=== PATIENT | male | born 1985 | race Caucasian/White ===

== ENCOUNTER 2018-01-29 23:24 | Emergency (ER) | payer BC ==
[~2018-01-29] VITALS: Ht 172.7 cm; Wt 85.7 kg
[~2018-01-29 23:24] MED LIST: DIPATR PO; HYDACE5 PO; PROM25 PO
== END 2018-01-30 00:10 | disposition home or self-care (01) ==
LOC: ER 23:24
DX: S80.01XA Contusion of right knee, initial encounter (principal); V80.010A Animal-rider injured by fall from or being thrown from horse in noncollision accident, initial encounter
CPT/HCPCS: 73564; 99283-25